=== PATIENT | female | born 1975 | race Two or more races ===

== ENCOUNTER 2018-11-26 11:57 | Day surgery (SDC) | payer OTHER ==
[~2018-11-26 11:57] MED LIST: ANTICONCEPTIC PO
[2018-11-26] MEDS ORDERED: KETO10TA2 PO (17:14)
[2018-11-26] MEDS ORDERED: PERCOCET 5-3251 EACH PO (17:14)
== END 2018-11-26 21:10 | disposition home or self-care (01) ==
LOC: CIR.AMB 11:57
DX: N87.1 Moderate cervical dysplasia (principal)